=== PATIENT | female | born 1990 | race Caucasian/White ===

== ENCOUNTER → 2018-01-22 08:20 | Outpatient (CLI) | payer OTHER ==
[2010-09-19 05:16] VITALS: BMI 29.2
== END ==
LOC: D.US 08:20
DX: R22.42 Localized swelling, mass and lump, left lower limb (principal)

== ENCOUNTER → 2018-02-18 11:06 | Outpatient (CLI) | payer OTHER ==
[2010-09-19 05:16] VITALS: BMI 29.2
== END | disposition home or self-care (01) ==
LOC: D.US 11:06
DX: R10.11 Right upper quadrant pain (principal)

== ENCOUNTER 2018-10-22 15:11 | Inpatient (IN) | payer OTHER ==
[~2018-10-22] VITALS: Ht 162.6 cm; Wt 75.0 kg
[2018-10-22] MEDS ORDERED: ROCEPHIN 500 M500 M1 IM (15:16)
[2018-10-22] MEDS ORDERED: LEVOFLOXACIN500 MG PO (15:16)
[2018-10-22 15:43] LABS: HEMATOCRIT 43.2 % (36.0-48.0); HEMOGLOBIN 15.6 g/dL (12-16); MCH 31.4 pg (26.0-34.0); MCHC 36.1 g/dL (31.0-37.0); MCV 86.9 fL (80.0-100.0); MEAN PLATELET VOLUME 12.5 fL (7.4-10.4); RBC 4.97 10x6/uL (4.00-5.40); RDW 13.5 % (11.5-14.5); WBC 2.7 10x3/uL (4.8-10.8)
[2018-10-22 15:58] LABS: PLATELET COUNT 47 10x3/uL (130-400)
[2018-10-22 15:59] LABS: APPEARANCE CLEAR (CLEAR); COLOR YELLOW (YELLOW)
[2018-10-22 16:00] LABS: BACTERIA NONE SEEN /hpf (NONE SEEN); BILIRUBIN NEGATIVE (NEGATIVE); EPITHELIAL CELLS 0-5 /hpf (0-5); GLUCOSE NEGATIVE (NEGATIVE); KETONE NEGATIVE (NEGATIVE); NITRITE NEGATIVE (NEGATIVE); PROTEIN NEGATIVE (NEGATIVE); RED CELLS - URINE 0-5 /hpf (0-5)
[2018-10-22 16:04] LABS: ALBUMIN 3.4 g/dL (3.4-5.0); ALKALINE PHOSPHATASE 314 U/L (46-116); ALT (SGPT) 111 U/L (10-68); CALCIUM 8.4 mg/dL (8.5-10.1); CARBON DIOXIDE 26.5 mmol/L (21.0-32.0); CREATININE - SERUM 0.9 mg/dL (0.6-1.3); GLUCOSE 97 mg/dL (74-106); POTASSIUM - SERUM 3.3 mmol/L (3.5-5.1); PROTEIN - SERUM 7.2 g/dL (6.4-8.2); UREA NITROGEN 4 mg/dL (7-18); eGFR NON AFRICAN AMERICAN 79 mL/min (90-120)
[2018-10-22 16:13] LABS: CALC OSMOLALITY 259 mosm/kg (275-300); CHLORIDE - SERUM 97 mmol/L (98-107); SODIUM 131 mmol/L (136-145)
[2018-10-22 16:45] LABS: LYMPHOCYTES 43 % (15-50); MONOCYTES 8 % (2-11); NEUTROPHILS 28 % (40-80); PLATELET ESTIMATE DECREASED; PLATELET MORPHOLOGY GIANT PLTS PRESENT
--- NOTE | 2018-10-22 18:55 | NUR ---
BEDSIDE REPORT FROM RICHA FERNANDO VIA SBAR.
--- NOTE | 2018-10-22 21:30 | NUR ---
PATIENT ARRIVED FROM ER VIA WHEELCHAIR ESCORTED BY STAFF AND . NO COMPLAINTS AT THIS TIME. NO DISTRESS NOTED.
[2018-10-22 22:38] VITALS: BP 108/68; Ht 162.6 cm; Wt 75.0 kg
[2018-10-23] VITALS: BP 107/62
[2018-10-23 04:00] VITALS: BP 110/61
[2018-10-23 07:21] LABS: BASOPHILS 1.9 % (0-2); EOSINOPHILS 0 % (0-7); HEMATOCRIT 36.2 % (36.0-48.0); HEMOGLOBIN 12.7 g/dL (12-16); IMMATURE GRANULOCYTES 0.4 % (0-5); LYMPHOCYTES 35.8 % (15-50); MCH 30.3 pg (26.0-34.0); MCHC 35.1 g/dL (31.0-37.0); MCV 86.4 fL (80.0-100.0); MEAN PLATELET VOLUME 12.5 fL (7.4-10.4); MONOCYTES 13.5 % (2-11); NEUTROPHILS 48.4 % (40-80); RBC 4.19 10x6/uL (4.00-5.40); RDW 13.7 % (11.5-14.5); WBC 2.6 10x3/uL (4.8-10.8)
[2018-10-23 07:33] LABS: PLATELET COUNT 42 10x3/uL (130-400)
[2018-10-23 07:41] LABS: ALBUMIN 2.6 g/dL (3.4-5.0); ALKALINE PHOSPHATASE 226 U/L (46-116); ALT (SGPT) 127 U/L (10-68); BILIRUBIN - TOTAL 1.21 mg/dL (0.2-1.3); C-REACTIVE PROTEIN 5.1 mg/dL (0.0-0.9); CALC OSMOLALITY 265 mosm/kg (275-300); CALCIUM 7.1 mg/dL (8.5-10.1); CARBON DIOXIDE 24.1 mmol/L (21.0-32.0); CHLORIDE - SERUM 103 mmol/L (98-107); CREATININE - SERUM 0.8 mg/dL (0.6-1.3); GLUCOSE 122 mg/dL (74-106); MAGNESIUM - SERUM 1.4 mg/dL (1.8-2.4); PROTEIN - SERUM 5.5 g/dL (6.4-8.2); SODIUM 134 mmol/L (136-145); UREA NITROGEN 4 mg/dL (7-18); eGFR NON AFRICAN AMERICAN 90 mL/min (90-120)
[2018-10-23 07:46] LABS: INR 1.16 (0.85-1.17); PROTIME 14.3 SECONDS (11.6-15.0)
[2018-10-23 07:47] LABS: APTT 36.5 SECONDS (22.8-39.4)
[2018-10-23 08:00] VITALS: BP 103/60
[2018-10-23 09:20] LABS: ERYTHROCYTE SEDIMENTATION RATE 2 mm/hr (0-20)
[2018-10-23 12:00] VITALS: BP 98/62
--- NOTE | 2018-10-23 14:10 | MORECARE ---
CASE MANAGEMENT DISCHARGE SUMMARY PATIENT: CHARY NO UNIT: [id number] ADM DATE: 10/22/18 AGE: 27 : 88 SEX: F ROOM/BED: D.1210 AUTHOR: MADDIDOC PHYSICIAN: REFERRING PHYSICIAN: COLLEEN RO MD DATE OF SERVICE: 10/23/18 Discharge Plan Patient Name: CHARY NO Facility: [facility]:[place] : 1990 Planned Disposition: Home Anticipated Discharge Date: 10/25/18 Discharge Date: Expected LOS: 3 Initial Reviewer: [email or web address] Initial Review Date: 10/22/2018 Generated: 10/23/18 3:09 pm Comments DCP- Discharge Planning Updated by [email or web address]: Mariana Ybarra on 10/23/18 12:[address] DC PLAN: Return home with her independently. ANTICIPATED DC NEEDS: Denied know dc needs at this time. CM met with patient to complete initial dc planning assessment. CM educated patient on the CM role and verbal consent given by patient to complete assessment. CM verified patient's address, phone number, and emergency contact phone numbers. Patient lives at home with her and reports she is independent in her care at home. At discharge patient plans to return home independently and feels this is a safe discharge. CM discussed availability of home health, rehab services, and medical equipment. Patient denied known discharge needs at this time. Patient reports her will transport him/her home at time of discharge. CM will continue to follow and will assist as needed with dc plans/needs. Mariana Ybarra RN, [facility] DCPIA - Discharge Planning Initial Assessment Updated by [email or web address]: Mariana Ybarra on 10/23/18 1:54 pm * Is the patient Alert and Oriented? Yes * How many steps to enter\exit or inside your home? * PCP Dr. Rogers * Pharmacy [facility] * Preadmission Environment Home with Family * ADLs Independent * Equipment None * List name and contact numbers for known caregivers / representatives who currently or will assist patient after discharge: Timothy No - - [phone] * Verbal permission to speak to the caregivers and representatives has been obtained from the patient. Yes * Community resources currently utilized None * Additional services required to return to the preadmission environment? No * Can the patient safely return to the preadmission environment? Yes * Has this patient been hospitalized within the prior 30 days at any hospital? No Patient Name: CHARY NO Page [id number] at 1410 All edits/amendments must be made on the electronic document DICTATION DATE: 10/23/181408 NURSE OUTREACH CASE MANAGER: LILIANA 10/23/181408 RPT#: [id number] DC DATE: STATUS: ADM IN [facility] [address] [place] [address] END OF REPORT
[2018-10-23 16:00] VITALS: BP 121/78
--- NOTE | 2018-10-23 19:50 | NUR ---
LYING IN BED WATCHING TV. ALERT AND ORIENTED X4. RESP EVEN AND NONLABORED. REPORTS H/A AND BACK ACHE. NOT TIME FOR TYLENOL YET. NS @ 100 MLHR INFUSING IN LT AC. LT ARM IS SWOLLEN AND RED. IV CATH REMOVED AT THIS TIME. SCDS IN USE BILAT. PEDAL PULSE WEAKER ON RT SIDE. AMBULATORY. SPOUSE AT BEDSIDE. NO DISTRESS. SR ELEVATED X2. CL IN REACH.
[2018-10-23 20:00] VITALS: BP 109/65
--- NOTE | 2018-10-23 21:25 | NUR ---
MEDICATED WITH TYLENOL FOR C/O H/A AND BACK ACHE. SHOWER TAKEN AT THIS TIME.
--- NOTE | 2018-10-23 23:00 | NUR ---
IV RESTARTED IN RT FOREARM WITH 22G AFTER ATTEMPT X3. PT VICKI WELL. CL IN REACH.
[2018-10-24 00:45] VITALS: BP 100/58
--- NOTE | 2018-10-24 01:07 | NUR ---
MEDICATED WITH TYLENOL FOR C/O H/A AND BACKACHE. CL IN REACH.
[2018-10-24 04:00] VITALS: BP 98/60
[2018-10-24 07:55] LABS: BASOPHILS 3.3 % (0-2); EOSINOPHILS 0 % (0-7); HEMATOCRIT 36.1 % (36.0-48.0); HEMOGLOBIN 12.6 g/dL (12-16); IMMATURE GRANULOCYTES 0.3 % (0-5); LYMPHOCYTES 60.7 % (15-50); MCH 30.1 pg (26.0-34.0); MCHC 34.9 g/dL (31.0-37.0); MCV 86.4 fL (80.0-100.0); MEAN PLATELET VOLUME 12.6 fL (7.4-10.4); MONOCYTES 16.6 % (2-11); NEUTROPHILS 19.1 % (40-80); RBC 4.18 10x6/uL (4.00-5.40); RDW 14.1 % (11.5-14.5)
--- NOTE | 2018-10-24 07:56 | NUR ---
PT IN BATHROOM AT THIS TIME. FAMILY AT [facility]. WILL COME BACK AND ASSESS.
[2018-10-24 07:59] LABS: PLATELET COUNT 53 10x3/uL (130-400); WBC 3.3 10x3/uL (4.8-10.8)
[2018-10-24 08:02] VITALS: BP 104/70
[2018-10-24 08:04] LABS: CALC OSMOLALITY 275 mosm/kg (275-300); CALCIUM 7.5 mg/dL (8.5-10.1); CARBON DIOXIDE 26.6 mmol/L (21.0-32.0); CHLORIDE - SERUM 107 mmol/L (98-107); CREATININE - SERUM 0.7 mg/dL (0.6-1.3); GLUCOSE 101 mg/dL (74-106); SODIUM 140 mmol/L (136-145); UREA NITROGEN 5 mg/dL (7-18); eGFR NON AFRICAN AMERICAN > 90 mL/min (90-120)
[2018-10-24 08:07] LABS: MAGNESIUM - SERUM 2.3 mg/dL (1.8-2.4); POTASSIUM - SERUM 3.7 mmol/L (3.5-5.1)
[2018-10-24 08:11] LABS: HEPATITIS C ANTIBODY <0.1 S/CO RAT (0.0-0.9)
--- NOTE | 2018-10-24 18:20 | NUR ---
I have reviewed this patient and I concur with the Shift Assessment completed by the Licensed Practical Nurse today this shift.
--- NOTE | 2018-10-24 19:30 | NUR ---
LYING IN BED WATCHING TV. AT BEDSIDE. ALERT AND ORIENTED X4. RESP EVEN AND NONLABORED. NONPROD COUGH. AWARE OF NEED FOR RT CULTURE IF ABLE. REPORTS PAIN IN BACK AND HEAD 5. JUST RECEIVED TYLENOL PRIOR TO SHIFT CHANGE. GEN WEAKNESS NOTED. NS @ 100 ML/HR INFUSING IN RT FOREARM WITHOUT DIFF. SCDS IN USE BILAT. SR ELEVATED X2. CL IN REACH.
[2018-10-24 20:00] VITALS: BP 94/68
--- NOTE | 2018-10-24 22:40 | NUR ---
MEDICATED WITH TYLENOL FOR C/O H/A AND BACK PAIN. CL IN REACH.
[2018-10-25 00:05] VITALS: BP 100/62
--- NOTE | 2018-10-25 02:50 | NUR ---
HAS RESTED WELL SO FAR TONIGHT. NO DISTRESS. CL IN REACH.
[2018-10-25 03:07] LABS: RMSF IGM 0.39 index (0.00-0.89)
--- NOTE | 2018-10-25 03:58 | NUR ---
RESTING WITH EYES CLOSED. SNORING. AT BEDSIDE. NO DISTRESS. DID NOT AWAKEN FOR V/S. CL IN REACH.
--- NOTE | 2018-10-25 07:41 | NUR ---
ALERT AND ORIENTED X4. COMPLAINS OF GENERALIZED ACHING WITH GOOD ROM OF EXT. X4. IV TO RT. F/A WITH NS INFUSING AT PRESCRIBED RATE WITH NO S/S OF INFECTION/INFILTRATION NOTED. FAMILY AT BEDSIDE WITH NO COMPLAINTS NOTED. ENCOURAGED TO USE CALL LIGHT FOR ASSSIT. LUNGS CTA. HRRR WITH ABD SOFT WITH BOWEL SOUNDS NOTED X4. REFUSES SCD'S AT THIS TIME.
[2018-10-25 07:47] VITALS: BP 99/72
[2018-10-25 08:33] LABS: HEMATOCRIT 37.9 % (36.0-48.0); HEMOGLOBIN 13.4 g/dL (12-16); MCH 30.8 pg (26.0-34.0); MCHC 35.4 g/dL (31.0-37.0); MCV 87.1 fL (80.0-100.0); MEAN PLATELET VOLUME 12.9 fL (7.4-10.4); RBC 4.35 10x6/uL (4.00-5.40); RDW 14.4 % (11.5-14.5)
[2018-10-25 08:37] LABS: PLATELET COUNT 111 10x3/uL (130-400); WBC 5.4 10x3/uL (4.8-10.8)
[2018-10-25 08:54] LABS: CALC OSMOLALITY 270 mosm/kg (275-300); CALCIUM 7.4 mg/dL (8.5-10.1); CARBON DIOXIDE 25.8 mmol/L (21.0-32.0); CHLORIDE - SERUM 106 mmol/L (98-107); CREATININE - SERUM 0.6 mg/dL (0.6-1.3); GLUCOSE 91 mg/dL (74-106); PHOSPHOROUS 2.9 mg/dL (2.5-4.9); POTASSIUM - SERUM 3.4 mmol/L (3.5-5.1); SODIUM 137 mmol/L (136-145); UREA NITROGEN 5 mg/dL (7-18); eGFR NON AFRICAN AMERICAN > 90 mL/min (90-120)
[2018-10-25 09:06] LABS: ALBUMIN 2.6 g/dL (3.4-5.0); ALKALINE PHOSPHATASE 206 U/L (46-116); ALT (SGPT) 350 U/L (10-68); BILIRUBIN - TOTAL 0.86 mg/dL (0.2-1.3); CREATINE KINASE 29 UL (21-215); PROTEIN - SERUM 5.8 g/dL (6.4-8.2)
[2018-10-25 09:58] LABS: LYMPHOCYTES 43 % (15-50); MONOCYTES 7 % (2-11); NEUTROPHILS 38 % (40-80); PLATELET ESTIMATE DECREASED; ROULEAUX OCC
[2018-10-25] MEDS ORDERED: MONODOX100 MG PO (10:31)
[2018-10-25 12:00] VITALS: BP 102/70
[2018-10-25 13:10] LABS: WNVS - IGG Negative (Negative); WNVS - IGM Negative (Negative)
--- NOTE | 2018-10-25 13:30 | NUR ---
IV DISCONTINUED AND VERBALIZED UNDERSTANDING OF DISCHARGE INSTRUCTIONS. DISCHARGED UNDER THE CARE OF FAMILY AND LEFT VIA POV. STABLE AT TIME OF DISCHARGE.
[2018-10-26 11:09] LABS: EBV - EARLY ANTIGEN AB IGG <9.0 U/mL (0.0-8.9); EBV - NUCLEAR ANTIGEN AB IGG 77.8 U/mL (0.0-17.9); EBV VIRAL CAPSID AB IGG 55.4 U/mL (0.0-17.9); EBV VIRAL CAPSID AB IGM <36.0 U/mL (0.0-35.9)
[2018-10-27 16:07] LABS: MYOGLOBIN - SERUM <21 ng/mL (25-58)
--- NOTE | 2018-10-28 08:38 | MORECARE ---
CASE MANAGEMENT DISCHARGE SUMMARY PATIENT: CAHRY NO UNIT: [id number] ADM DATE: 10/22/18 AGE: 27 : 88 SEX: F ROOM/BED: D.1210 AUTHOR: MADDI,DOC PHYSICIAN: REFERRING PHYSICIAN: COLLEEN RO MD DATE OF SERVICE: 10/28/18 Discharge Plan Patient Name: CHARY NO Facility: [facility]:[place] : 1990 Planned Disposition: Home Anticipated Discharge Date: 10/25/18 Discharge Date: 10/25/2018 Expected LOS: 3 Initial Reviewer: [email or web address] Initial Review Date: 10/22/2018 Generated: 10/28/18 9:38 am DCP- Discharge Planning Updated by [email or web address]: Mariana Ybarra on 10/23/18 12:[address] DC PLAN: Return home with her independently. ANTICIPATED DC NEEDS: Denied know dc needs at this time. CM met with patient to complete initial dc planning assessment. CM educated patient on the CM role and verbal consent given by patient to complete assessment. CM verified patient's address, phone number, and emergency contact phone numbers. Patient lives at home with her and reports she is independent in her care at home. At discharge patient plans to return home independently and feels this is a safe discharge. CM discussed availability of home health, rehab services, and medical equipment. Patient denied known discharge needs at this time. Patient reports her will transport him/her home at time of discharge. CM will continue to follow and will assist as needed with dc plans/needs. Mariana Ybarra RN, [facility] DCPIA - Discharge Planning Initial Assessment Updated by [email or web address]: Mariana Ybarra on 10/23/18 1:54 pm * Is the patient Alert and Oriented? Yes * How many steps to enter\exit or inside your home? * PCP Dr. Rogers * Pharmacy [facility] * Preadmission Environment Home with Family * ADLs Independent * Equipment None * List name and contact numbers for known caregivers / representatives who currently or will assist patient after discharge: Timothy No - - [phone] * Verbal permission to speak to the caregivers and representatives has been obtained from the patient. Yes * Community resources currently utilized None * Additional services required to return to the preadmission environment? No * Can the patient safely return to the preadmission environment? Yes * Has this patient been hospitalized within the prior 30 days at any hospital? No Last DP export: 10/23/18 1:10 p Patient Name: CHARY NO Page [id number] at 0838 All edits/amendments must be made on the electronic document DICTATION DATE: 10/28/18837 REGIONAL ECONOMIST: LILIANA 10/28/18837 RPT#: [id number] DC DATE:10/25/18 STATUS: DIS IN [facility] [address] [place] [address] END OF REPORT
[2018-10-28 12:09] LABS: EHRLICHIA CHAFF IGG Negative (Neg:<1:64); EHRLICHIA CHAFF IGM Negative (Neg:<1:20); HGE IGG TITER Negative (Neg:<1:64); HGE IGM TITER Negative (Neg:<1:20)
[2018-10-29 14:09] LABS: F. TULARENSIS - IGG Negative (Negative); F. TULARENSIS - IGM Negative (Negative)
== END 2018-10-25 13:30 | disposition home or self-care (01) | DRG 866 ==
LOC: D.ER 15:11 → D.M3 18:52
PROVIDERS: Family Medicine; Internal Medicine Hematology & Oncology; ADMIT Internal Medicine Nephrology; ATTEND Internal Medicine Nephrology
DX: A93.8 Other specified arthropod-borne viral fevers (principal); D61.818 Other pancytopenia; E87.1 Hypo-osmolality and hyponatremia; E87.6 Hypokalemia; E83.42 Hypomagnesemia

== ENCOUNTER 2019-10-30 15:30 | Outpatient (CLI) | payer BC ==
[2018-10-22 22:38] VITALS: BMI 28.4
[~2019-10-30 15:30] MED LIST: LEVOFLOXACIN500 MG PO; MONODOX100 MG PO; ROCEPHIN 500 M500 M1 IM
== END 2019-10-30 23:59 | disposition home or self-care (01) ==
LOC: D.MAMMO 15:30
PROVIDERS: ATTEND Family Medicine
DX: N63.11 Unspecified lump in the right breast, upper outer quadrant (principal)